=== PATIENT | female | born 1960 | race Caucasian/White ===

== ENCOUNTER → 2020-11-29 12:47 | Outpatient (BNVA) | payer MEDICAID, SELFPAY | PROVIDERS: Family Provider Family Medicine; PCP Family Medicine; Visit Provider Specialist | DX: G40.909 Epilepsy, unspecified, not intractable, without status epilepticus (principal) | CPT/HCPCS: 99213 ==

== ENCOUNTER 2020-11-29 14:56 | Outpatient (CLI) | payer MEDICAID, SELFPAY ==
[2020-11-29 15:42] LABS: Basophils % 0.7 %; Eosinophils # 0.4 10^3/uL (0.0-0.8); Eosinophils % 7.7 %; Hematocrit 37.7 % (37.0-47.0); Lymphocytes # 1.7 10^3/uL (0.8-4.8); Lymphocytes % 29.9 %; Mean Corpuscular HGB Conc 31.8 g/dL (30.0-36.0); Mean Corpuscular Hemoglobin 31.2 pg (28.0-34.0); Mean Corpuscular Volume 97.9 fL (81-99); Mean Platelet Volume 9.4 fL (7.4-10.4); Monocytes # 0.4 10^3/uL (0.2-0.9); Neutrophils % 54.3 %; Nucleated Red Blood Cells % 0 %; Platelet Count 276 10^3/cmm (130-400); Red Blood Count 3.85 10^6/uL (4.1-5.3); Red Cell Distribution Width 13.2 % (12.1-15.1); White Blood Count 5.7 10^3/uL (4.0-10.0)
[2020-11-29 15:59] LABS: Alanine Aminotransferase 9 U/L (0-33)
[2020-11-29 16:34] LABS: Carbamazepine Tegretol 10.2 ug/mL (4.0-12.0)
== END 2020-11-29 14:57 | disposition home or self-care (01) ==
PROVIDERS: Visit Provider Specialist
DX: G40.909 Epilepsy, unspecified, not intractable, without status epilepticus (principal)
CPT/HCPCS: 36415; 80156; 84460; 85025

== ENCOUNTER → 2020-12-26 09:47 | Outpatient (BNVA) | payer MEDICAID, SELFPAY | PROVIDERS: Visit Provider Registered Nurse | DX: Z79.899 Other long term (current) drug therapy (principal) | CPT/HCPCS: 36415; 80053; 80061; 82306; 83036 ==

== ENCOUNTER → 2021-02-08 13:06 | Outpatient (BNVA) | payer MEDICAID, SELFPAY | PROVIDERS: Visit Provider Specialist | DX: G40.909 Epilepsy, unspecified, not intractable, without status epilepticus (principal); F43.12 Post-traumatic stress disorder, chronic; F60.3 Borderline personality disorder; F41.1 Generalized anxiety disorder; E87.1 Hypo-osmolality and hyponatremia; R51.9 Headache, unspecified; R20.0 Anesthesia of skin; R20.2 Paresthesia of skin | CPT/HCPCS: 99215 ==

== ENCOUNTER 2021-02-08 15:28 | Outpatient (CLI) | payer MEDICAID, SELFPAY ==
[2021-02-08 16:44] LABS: Alanine Aminotransferase 11 U/L (0-33); Albumin Level 4.6 g/dL (3.5-5.2); Alkaline Phosphatase 100 IU/L (35-105); Aspartate Amino Transferase 16 U/L (0-32); Blood Urea Nitrogen 16 mg/dL (6-20); Carbon Dioxide 25 mmol/L (22-29); Chloride 89 mmol/L (98-107); Globulin 2.6 g/dL (1.3-4.6); Glomerular Filtration Rate 102.3 mL/min (90-130); Glucose 88 mg/dL (65-115); Osmolality Calculated 265 mOsm/kg (285-295); Sodium 127 mmol/L (136-145); Total Bilirubin 0.4 mg/dL (0.15-1.2); Total Protein 7.2 g/dL (6.6-8.7)
[2021-02-08 17:27] LABS: Anion Gap 16.8 (5-19)
[2021-02-08 17:28] LABS: Potassium 3.8 mmol/L (3.5-5.1)
== END 2021-02-08 15:29 | disposition home or self-care (01) ==
PROVIDERS: PCP Family Medicine; Visit Provider Specialist
DX: R20.0 Anesthesia of skin (principal); R20.2 Paresthesia of skin
CPT/HCPCS: 80053

== ENCOUNTER → 2021-02-22 10:48 | Outpatient (BNVA) | payer MEDICAID, SELFPAY | PROVIDERS: PCP Family Medicine; Visit Provider Family Medicine | DX: E87.1 Hypo-osmolality and hyponatremia (principal) | CPT/HCPCS: 80053; 85025 ==

== ENCOUNTER → 2021-02-28 12:55 | Outpatient (BNVA) | payer MEDICAID, SELFPAY | PROVIDERS: PCP Family Medicine; Visit Provider Specialist | DX: G40.909 Epilepsy, unspecified, not intractable, without status epilepticus (principal); F17.200 Nicotine dependence, unspecified, uncomplicated | CPT/HCPCS: 95816 ==

== ENCOUNTER → 2021-03-28 00:01 | Outpatient (BNVA) | payer MEDICAID, SELFPAY | PROVIDERS: PCP Family Medicine; Visit Provider Family Medicine | DX: I10 Essential (primary) hypertension (principal); G40.909 Epilepsy, unspecified, not intractable, without status epilepticus; E87.1 Hypo-osmolality and hyponatremia | CPT/HCPCS: 80048; 80177 ==

== ENCOUNTER → 2021-05-03 11:12 | Outpatient (BNVA) | payer MEDICAID, SELFPAY | PROVIDERS: PCP Family Medicine; Visit Provider Family Medicine | DX: E87.1 Hypo-osmolality and hyponatremia (principal) | CPT/HCPCS: 80048 ==

== ENCOUNTER → 2021-05-10 14:21 | Outpatient (BNVA) | payer MEDICAID, SELFPAY | PROVIDERS: PCP Family Medicine; Visit Provider Specialist | DX: G40.909 Epilepsy, unspecified, not intractable, without status epilepticus (principal) | CPT/HCPCS: 99213 ==

== ENCOUNTER → 2021-06-19 14:42 | Outpatient (BNVA) | payer MEDICAID, SELFPAY | PROVIDERS: PCP Family Medicine; Visit Provider Family Medicine | DX: E87.1 Hypo-osmolality and hyponatremia (principal); I10 Essential (primary) hypertension; R42 Dizziness and giddiness; F33.1 Major depressive disorder, recurrent, moderate | CPT/HCPCS: 80048 ==

== ENCOUNTER → 2021-09-18 10:39 | Outpatient (BNVA) | payer MEDICAID, SELFPAY | PROVIDERS: PCP Family Medicine; Visit Provider Family Medicine | DX: M17.12 Unilateral primary osteoarthritis, left knee (principal); M25.562 Pain in left knee; I10 Essential (primary) hypertension; E87.1 Hypo-osmolality and hyponatremia; Z13.220 Encounter for screening for lipoid disorders; Z13.6 Encounter for screening for cardiovascular disorders; R42 Dizziness and giddiness; F33.1 Major depressive disorder, recurrent, moderate | CPT/HCPCS: 73562; 80048; 80061; 82306; 84443 ==

== ENCOUNTER → 2022-01-10 09:21 | Outpatient (BNVA) | payer MEDICAID, SELFPAY | PROVIDERS: PCP Family Medicine; Visit Provider Family Medicine | DX: M16.12 Unilateral primary osteoarthritis, left hip (principal); M79.652 Pain in left thigh | CPT/HCPCS: 73502; 73552 ==

== ENCOUNTER → 2022-01-24 15:21 | Outpatient (BNVA) | payer MEDICAID, SELFPAY | PROVIDERS: PCP Family Medicine; Visit Provider Specialist | DX: M70.62 Trochanteric bursitis, left hip (principal); M16.12 Unilateral primary osteoarthritis, left hip; M25.552 Pain in left hip | CPT/HCPCS: 73502; 99204 ==

== ENCOUNTER 2022-03-23 06:46 | Outpatient (CLI) | payer MEDICAID, SELFPAY ==
--- NOTE | 2022-03-23 07:00 | MR_ITS ---
WS: [id number] MRI LEFT HIP without CONTRAST. COMPARISON: None HISTORY: LEFT hip pain for 3 months. Multiplanar, multisequence imaging is performed without contrast. Symmetric appearance of the hips. No significant amount of marrow edema and no fracture. Very slightl y more fluid in the LEFT hip joint as compared to the RIGHT. There is very slight cortical irregularity involving the superior lateral cortex of the LEFT femoral head with adjacent minimal soft tissue edema. There is a small osseous fragment measuring 7 x 2 mm ne ar the cortical irregularity. Suspect this is a very tiny avulsion fracture from the iliofemoral liga ment injury. No significant amount of marrow edema persists although there is increased signal within the ligament. This is asymmetric to the RIGHT. No labral abnormality is identified. No edema within the visualized muscles surrounding the LEFT hip no atrophy. MR/MR hip LT wo con* [id number] IMPRESSION: 1. Mild sprain involving the LEFT iliofemoral ligament. Very small amount of i ncreased T2 signal along the posterior lateral hip with a very tiny avulsion fr acture. No marrow edema. Suspect nonacute injury. 2. Very minimal increased LEFT hip joint effusion as compared to the RIGHT.
== END 2022-03-23 06:47 | disposition home or self-care (01) ==
LOC: RAD 06:46
PROVIDERS: PCP Family Medicine; Visit Provider Specialist
DX: M70.62 Trochanteric bursitis, left hip; M16.12 Unilateral primary osteoarthritis, left hip; S73.112A Iliofemoral ligament sprain of left hip, initial encounter; X58.XXXA Exposure to other specified factors, initial encounter
CPT/HCPCS: 73721

== ENCOUNTER → 2022-03-26 13:48 | Outpatient (BNVA) | payer MEDICAID, SELFPAY | PROVIDERS: PCP Family Medicine; Visit Provider Specialist | DX: M16.12 Unilateral primary osteoarthritis, left hip (principal); S73.102A Unspecified sprain of left hip, initial encounter; X58.XXXA Exposure to other specified factors, initial encounter | CPT/HCPCS: 99213 ==

== ENCOUNTER → 2022-05-02 14:46 | Outpatient (BNVA) | payer MEDICAID, SELFPAY | PROVIDERS: PCP Family Medicine; Visit Provider Specialist | DX: G40.909 Epilepsy, unspecified, not intractable, without status epilepticus (principal); I10 Essential (primary) hypertension | CPT/HCPCS: 99213; 99214 ==

== ENCOUNTER → 2022-07-10 11:07 | Outpatient (BNVA) | payer MEDICAID, SELFPAY | PROVIDERS: PCP Family Medicine; Visit Provider Emergency Medicine | DX: R39.9 Unspecified symptoms and signs involving the genitourinary system (principal); N30.01 Acute cystitis with hematuria | CPT/HCPCS: 81000 ==

== ENCOUNTER → 2022-07-24 12:50 | Outpatient (BNVA) | payer MEDICAID, SELFPAY | PROVIDERS: PCP Family Medicine; Visit Provider Family Medicine | DX: N39.0 Urinary tract infection, site not specified (principal); Z87.440 Personal history of urinary (tract) infections; E87.1 Hypo-osmolality and hyponatremia; I10 Essential (primary) hypertension; Z51.81 Encounter for therapeutic drug level monitoring; M16.12 Unilateral primary osteoarthritis, left hip; F41.1 Generalized anxiety disorder; Z13.220 Encounter for screening for lipoid disorders; Z13.6 Encounter for screening for cardiovascular disorders | CPT/HCPCS: 80053; 80061; 81000; 85025; 87077; 87086; 87184 ==

== ENCOUNTER → 2022-10-25 14:01 | Outpatient (BNVA) | payer MEDICAID, SELFPAY | PROVIDERS: PCP Family Medicine; Visit Provider Family Medicine | DX: R39.9 Unspecified symptoms and signs involving the genitourinary system (principal) | CPT/HCPCS: 81000 ==

== ENCOUNTER → 2023-01-23 11:11 | Outpatient (BNVA) | payer MEDICAID, SELFPAY | PROVIDERS: PCP Family Medicine; Visit Provider Family Medicine | DX: I10 Essential (primary) hypertension (principal); Z51.81 Encounter for therapeutic drug level monitoring; G40.909 Epilepsy, unspecified, not intractable, without status epilepticus; F41.1 Generalized anxiety disorder; Z79.899 Other long term (current) drug therapy; M16.12 Unilateral primary osteoarthritis, left hip | CPT/HCPCS: 80053 ==

== ENCOUNTER → 2023-02-18 14:52 | Outpatient (BNVA) | payer MEDICAID, SELFPAY | PROVIDERS: PCP Family Medicine; Visit Provider Family Medicine | DX: M16.12 Unilateral primary osteoarthritis, left hip (principal); M17.12 Unilateral primary osteoarthritis, left knee | CPT/HCPCS: 73502; 73562; 80177 ==

== ENCOUNTER → 2023-03-07 09:01 | Outpatient (BNVA) | payer MEDICAID, SELFPAY | PROVIDERS: PCP Family Medicine; Referring Provider Family Medicine; Visit Provider Surgery | DX: K59.00 Constipation, unspecified (principal); Z80.0 Family history of malignant neoplasm of digestive organs | CPT/HCPCS: 99203 ==

== ENCOUNTER 2023-03-12 11:24 | Outpatient (CLI) | payer MEDICAID, SELFPAY ==
--- NOTE | 2023-03-12 11:33 | MM_ITS ---
WS: [id number] BILATERAL 3D TOMOSYNTHESIS DIGITAL SCREENING MAMMOGRAPHY WITH CAD CLINICAL INFORMATION: Z12.39 - Encounter for other screening for malignant neop... HISTORY: Screening mammogram. No current complaints. COMPARISON: 2022. TECHNIQUE: Bilateral CC and MLO views. FINDINGS: Bilateral breast implants appear intact. The breasts are composed of heterogeneous fibroglandular density tissue, which can limit the detectio n of small underlying mass lesions. No suspicious mass, asymmetry, calcifications, or architectural d istortion. No evidence of malignancy. Punctate and lucent centered calcifications. IMPRESSION: MM/[place] [id number] BI-RADS: 2-Benign FOLLOW UP: 1 Year Follow-up Recommend return to annual screening mammography.
== END 2023-03-12 11:25 | disposition home or self-care (01) ==
LOC: RAD 11:26
PROVIDERS: PCP Family Medicine; Visit Provider Family Medicine
DX: Z12.31 Encounter for screening mammogram for malignant neoplasm of breast (principal)
CPT/HCPCS: 77063; 77067

== ENCOUNTER → 2023-03-25 11:22 | Outpatient (BNVA) | payer MEDICAID, SELFPAY | PROVIDERS: PCP Family Medicine; Visit Provider Specialist | DX: M17.32 Unilateral post-traumatic osteoarthritis, left knee | CPT/HCPCS: 20610; 73560; 73565; 99214; J1100; J2795; J3301 ==

== ENCOUNTER → 2023-03-26 12:25 | Outpatient (BNVA) | payer MEDICAID, SELFPAY | PROVIDERS: PCP Family Medicine; Visit Provider Specialist | DX: G40.909 Epilepsy, unspecified, not intractable, without status epilepticus (principal); F33.1 Major depressive disorder, recurrent, moderate | CPT/HCPCS: 99213 ==

== ENCOUNTER → 2023-08-14 14:09 | Outpatient (BNVA) | payer MEDICAID, OTHER, SELFPAY | PROVIDERS: PCP Family Medicine; Visit Provider Family Medicine | DX: I10 Essential (primary) hypertension (principal); M16.12 Unilateral primary osteoarthritis, left hip; E87.1 Hypo-osmolality and hyponatremia; F33.1 Major depressive disorder, recurrent, moderate; Z51.81 Encounter for therapeutic drug level monitoring; G40.909 Epilepsy, unspecified, not intractable, without status epilepticus; Z12.11 Encounter for screening for malignant neoplasm of colon; M16.52 Unilateral post-traumatic osteoarthritis, left hip | CPT/HCPCS: 80053; 80061; 80177; 84443; 85025 ==

== ENCOUNTER 2023-12-13 10:06 | Outpatient (CLI) | payer MEDICAID, SELFPAY | END 2023-12-13 10:07 | disposition home or self-care (01) | LOC: LAB 10:07 | PROVIDERS: PCP Family Medicine | DX: M17.32 Unilateral post-traumatic osteoarthritis, left knee (principal) | CPT/HCPCS: 20610; 36415; 80048; J1100; J2795; J3301 ==

== ENCOUNTER → 2024-01-07 09:26 | Outpatient (BNVA) | payer MEDICAID, SELFPAY | PROVIDERS: PCP Family Medicine; Referring Provider Family Medicine; Visit Provider Family Medicine | DX: E87.1 Hypo-osmolality and hyponatremia (principal) | CPT/HCPCS: 80048 ==

== ENCOUNTER → 2024-03-24 12:30 | Outpatient (BNVA) | payer MEDICAID, SELFPAY | PROVIDERS: PCP Family Medicine; Visit Provider Specialist | DX: G40.909 Epilepsy, unspecified, not intractable, without status epilepticus (principal); F33.1 Major depressive disorder, recurrent, moderate; R42 Dizziness and giddiness | CPT/HCPCS: 99214 ==

== ENCOUNTER → 2024-06-30 09:51 | Outpatient (BNVA) | payer MEDICAID, SELFPAY | PROVIDERS: PCP Family Medicine; Visit Provider Family Medicine | DX: M16.12 Unilateral primary osteoarthritis, left hip (principal); I10 Essential (primary) hypertension; M16.52 Unilateral post-traumatic osteoarthritis, left hip; K59.00 Constipation, unspecified; F33.1 Major depressive disorder, recurrent, moderate; E87.1 Hypo-osmolality and hyponatremia; Z13.220 Encounter for screening for lipoid disorders; Z13.6 Encounter for screening for cardiovascular disorders; E87.6 Hypokalemia | CPT/HCPCS: 80048; 80061 ==

== ENCOUNTER → 2024-09-09 15:22 | Outpatient (BNVA) | payer MEDICAID, SELFPAY ==
[2024-07-01 13:29] VITALS: BP 138/93; BMI 25.4
== END ==
PROVIDERS: PCP Family Medicine; Visit Provider Specialist
DX: M17.32 Unilateral post-traumatic osteoarthritis, left knee (principal)
CPT/HCPCS: 20610; 73560; 73565; 99213; J1100; J2795; J3301

== ENCOUNTER 2024-10-30 13:38 | Outpatient (CLI) | payer MEDICAID, SELFPAY ==
[2024-07-01 13:29] VITALS: BP 138/93; BMI 25.4
--- NOTE | 2024-10-30 13:20 | MM_ITS ---
WS: [id number] BILATERAL 3D TOMOSYNTHESIS DIGITAL SCREENING MAMMOGRAPHY WITH CAD CLINICAL INFORMATION: Z12.39 - Encounter for other screening for malignant neop... HISTORY: Screening mammogram. No current complaints. COMPARISON: 2022 TECHNIQUE: Bilateral CC and MLO views. FINDINGS: Bilateral breast implants appear intact The breasts are composed of heterogeneous fibroglandular density tissue, which can limit the detection of small underlying mass lesions. No suspicious mass, asymmetry, calcifications, or architectural distortion. No evidence of malignancy. Punctate and lucent centered calcifications. MM/MM [facility] tomosynthesis [id number] IMPRESSION: DENSITY: The breasts are heterogeneously dense, which may obscure small masses. BI-RADS: 2 - Benign FOLLOW UP: 1 Year Follow-up Recommend return to annual screening mammography.
== END 2024-10-30 13:39 | disposition home or self-care (01) ==
LOC: RAD 13:39
PROVIDERS: PCP Family Medicine; Visit Provider Family Medicine
DX: Z12.31 Encounter for screening mammogram for malignant neoplasm of breast (principal); R92.333 Mammographic heterogeneous density, bilateral breasts; R92.1 Mammographic calcification found on diagnostic imaging of breast
CPT/HCPCS: 77063; 77067

== ENCOUNTER → 2025-01-12 15:06 | Outpatient (BNVA) | payer MEDICAID, SELFPAY ==
[2024-07-01 13:29] VITALS: BP 138/93; BMI 25.4
== END ==
PROVIDERS: PCP Family Medicine; Visit Provider Family Medicine
DX: R30.0 Dysuria (principal)
CPT/HCPCS: 81000; 87077; 87086; 87184

== ENCOUNTER → 2025-02-17 10:24 | Outpatient (BNVA) | payer MEDICAID, SELFPAY ==
[2024-07-01 13:29] VITALS: BP 138/93; BMI 25.4
== END ==
PROVIDERS: PCP Family Medicine; Visit Provider Nurse Practitioner
DX: M17.32 Unilateral post-traumatic osteoarthritis, left knee (principal); Z71.89 Other specified counseling
CPT/HCPCS: 20610

== ENCOUNTER → 2025-03-16 10:24 | Outpatient (BNVA) | payer MEDICAID, SELFPAY ==
[2024-07-01 13:29] VITALS: BP 138/93; BMI 25.4
== END ==
PROVIDERS: PCP Family Medicine; Visit Provider Family Medicine
DX: R39.15 Urgency of urination (principal)
CPT/HCPCS: 81000

== ENCOUNTER → 2025-03-23 12:29 | Outpatient (BNVA) | payer MEDICAID, SELFPAY ==
[2024-07-01 13:29] VITALS: BP 138/93; BMI 25.4
== END ==
PROVIDERS: PCP Family Medicine; Visit Provider Specialist
DX: G40.909 Epilepsy, unspecified, not intractable, without status epilepticus (principal); F33.1 Major depressive disorder, recurrent, moderate
CPT/HCPCS: 99213

== ENCOUNTER → 2025-05-28 10:07 | Outpatient (BNVA) | payer MEDICAID, SELFPAY ==
[2024-07-01 13:29] VITALS: BP 138/93; BMI 25.4
== END ==
PROVIDERS: PCP Family Medicine; Visit Provider Specialist
DX: M17.32 Unilateral post-traumatic osteoarthritis, left knee (principal)
CPT/HCPCS: 20610; J1100; J2795; J3301; J9999